=== PATIENT | female | born 2005 | race Caucasian/White ===

== ENCOUNTER 2024-01-28 12:47 | Emergency (ER) | payer BC, SELFPAY ==
[2024-01-28 12:55] VITALS: BP 115/75; PULSE 64; RESP 16; TEMP 37.2; O2SAT 100
--- NOTE | 2024-01-28 13:35 | ED.URI ---
HPI - URI/Sore Throat General Chief Complaint: Upper Respiratory Infection Stated Complaint: Sinus Time Seen by Provider: 01/28/24 13:35 Source: patient Mode of arrival: ambulatory Limitations: no limitations History of Present Illness HPI Narrative: 18-year-old female presented for complaint of nonproductive cough x5 days, chest tightness with deep breath x3 days, and started with dry heaves today. Tested neg for covid at home yesterday. Denies sore throat, shortness of breath, wheezing, vomiting, Fever or lethargy. Related Data Home Medications Medication Instructions Recorded Confirmed tretinoin 0.025 % topical cream 1 applic topical DAILY 01/28/24 01/28/24 Allergies Allergy/AdvReac Type Severity Reaction Status Date / Time No Known Allergies Allergy Mild Verified 01/28/24 13:12 Review of Systems Review of Systems: ROS per HPI All systems reviewed & are unremarkable except as noted in HPI and below PMFSH Comments At time of signature, I have reviewed and agree with nursing past medical, surgical, social and family history unless otherwise noted. Please see nursing chart for further information. There is no relevant family history pertinent to the presenting complaint Exam Narrative: GENERAL: Well-appearing EYES: EOMI. No redness or drainage. Conjunctivae normal. ENT: Mucous membranes pink and moist. No rhinorrhea. TMs normal bilaterally. Throat normal. Uvula midline. NECK: Normal AROM. Supple. No lymphadenopathy. CHEST: No respiratory distress. Clear to auscultation. HEART: Regular rate and rhythm. No murmur appreciated. Normal peripheral pulses. ABDOMEN: Soft, nontender, nondistended, normal active bowel sounds. SKIN: Warm, dry, no rash. Capillary refill normal. Normal skin turgor. NEURO: No focal deficits. Alert and oriented x3. Gait steady. PSYCH: Normal affect. Course Course Emergency Course: Patient is aware of diagnosis, understands and agrees to treatment plan. Anticipatory guidance given. Patient agrees to follow-up as directed and is aware of reasons to seek care at the emergency department. Portions of this record may have been created with voice recognition software Level of Care: Express Care Visit Vital Signs Vital signs: Vital Signs Temperature 98.9 F 01/28/24 12:55 Pulse Rate 64 01/28/24 12:55 Respiratory Rate 16 01/28/24 12:55 Blood Pressure 115/75 01/28/24 12:55 Pulse Oximetry 100 01/28/24 12:55 Oxygen Delivery Room Air 01/28/24 12:55 Temperature 98.9 F 01/28/24 12:55 Pulse Rate 64 01/28/24 12:55 Respiratory Rate 16 01/28/24 12:55 Blood Pressure 115/75 01/28/24 12:55 Pulse Oximetry 100 01/28/24 12:55 Oxygen Delivery Room Air 01/28/24 12:55 MDM - URI/Sore Throat MDM Narrative Medical decision making narrative: Discussed physical exam findings, results of COVID, flu and strep reviewed with patient.. Advised supportive measures and signs/symptoms to go to the ER. Pt is appropriate for outpt treatment and f/u. Differential Diagnosis Differential diagnosis: Likely upper respiratory infection, otitis media, sinusitis, viral infection, bronchitis, influenza and pharyngitis Discharge Plan Discharge Clinical Impression: Viral infection Patient Disposition: Home, Self-Care Condition: Stable Instructions: Antibiotic Form, Viral Syndrome (ED) Additional Instructions: COVID and flu negative. Rapid strep swab was negative today You will be notified in a few days if the culture comes back positive for strep, and appropriate antibiotics will be called in at that time. if symptoms are due to a viral illness, it is not treated with antibiotics. Viral symptoms can be present for up to 10-14 days. Recommend Flonase spray and Zyrtec for sinus congestion Cough syrup may cause drowsiness; avoid driving or take it at night time. Tylenol every 8 hours as needed for pain/fever Soft foods, cool liq
[2024-01-28 14:24] LABS: EDINFLUASCREEN Negative; EDINFLUBSCREEN Negative
[2024-01-28 14:24] LABS: EDSTREPNEGPOS1 Presumptive Negative
== END 2024-01-28 14:38 | disposition home or self-care (01) ==
PROVIDERS: Emergency Provider Nurse Practitioner Family
DX: B34.9 Viral infection, unspecified (principal); Z20.822 Contact with and (suspected) exposure to COVID-19
CPT/HCPCS: 87081; 87426; 87804; 87880; 99203; G0463